=== PATIENT | female | born 1980 | race Caucasian/White ===

== ENCOUNTER 2018-08-01 18:35 | Emergency (ER) | payer OTHER ==
[2018-08-01 18:42] VITALS: BP 112/82
--- NOTE | 2018-08-01 19:03 | EDPHY ---
H & P Stated Complaint: OPENED CAR DOOR INTO FACE/LAC UPPER R EYELID Time Seen by Provider: 08/01/18 18:50 HPI/ROS: Chief Complaint: Superficial laceration below right eyebrow HPI: The patient presents to the ED with a superficial laceration below her right eyebrow. She accidentally struck it on the corner of a car door. She denies any headache, loss of consciousness or visual complaints. REVIEW OF SYSTEMS: Neuro: no headache, numbness, weakness Musculoskeletal: as above Skin: As above Source: Patient Exam Limitations: No limitations - Personal History LMP (Females 10-55): 22-28 Days Ago Current Tetanus Diphtheria and Acellular Pertussis (TDAP): Yes - Medical/Surgical History Hx Asthma: No Hx Chronic Respiratory Disease: No Hx Diabetes: No Hx Cardiac Disease: No Hx Renal Disease: No Hx Cirrhosis: No Hx Alcoholism: No Hx HIV/AIDS: No Hx Splenectomy or Spleen Trauma: No Other PMH: BUNION SURG BILAT FEET - Social History Smoking Status: Never smoked - Physical Exam Exam: General: No acute distress Head: Very superficial 1 cm laceration below right eyebrow. No bony tenderness to palpation. Eyes: Extraocular eye movements intact without pain Constitutional: Initial Vital Signs Temperature (C) 37 C 08/01/18 18:39 Heart Rate 88 08/01/18 18:39 Respiratory Rate 18 08/01/18 18:39 Blood Pressure 112/82 H 08/01/18 18:39 O2 Sat (%) 96 08/01/18 18:39 O2 Delivery Mode Room Air Allergies/Adverse Reactions: No Known Allergies Allergy (Unverified 08/01/18 18:39) Home Medications: Medication Instructions Recorded NK [No Known Home Meds] 08/01/18 Medical Decision Making Procedures: Procedure: Laceration repair with skin glue Verbal consent was obtained from the patient. The 1 cm laceration on the face. The wound was irrigated per protocol. There were no deep structures involved. The wound was repaired with tissue adhesive. The procedure was performed by myself. Departure - Departure Disposition: Home, Routine, Self-Care Clinical Impression: Facial laceration Condition: Good Instructions: Skin Adhesive Care (ED) Referrals: NONE *PRIMARY CARE P,. [Primary Care Provider] - As per Instructions
[2018-08-01] MEDS ORDERED: SKIN ADHESIVE (DERMABOND) 1 EACH TP ONE (19:06)
== END 2018-08-01 19:25 | disposition home or self-care (01) ==
PROC: 0HQ1XZZ Repair Face Skin, External Approach (ICD-10-PCS; principal; 2018-08-01)
DX: S01.111A Laceration without foreign body of right eyelid and periocular area, initial encounter (principal); W22.8XXA Striking against or struck by other objects, initial encounter; Y92.9 Unspecified place or not applicable; Y93.9 Activity, unspecified; Y99.9 Unspecified external cause status